=== PATIENT | female | born 1960 | race Caucasian/White ===

== ENCOUNTER 2021-12-14 18:24 | Emergency (ER) | payer OTHER ==
[2021-12-14 21:47] LABS: INFLUENZA A NAA NEGATIVE (NEGATIVE)
[2021-12-14 21:48] LABS: CORONAVIRUS 2019 SARS-COV-2 POSITIVE (NEGATIVE)
== END 2021-12-14 22:40 | disposition home or self-care (01) ==
LOC: FER 18:24
PROVIDERS: Emergency Medicine Emergency Medical Services
DX: U07.1 COVID-19 (principal); E11.9 Type 2 diabetes mellitus without complications; I10 Essential (primary) hypertension; F17.200 Nicotine dependence, unspecified, uncomplicated; Z79.899 Other long term (current) drug therapy
CPT/HCPCS: 99283; U0002

== ENCOUNTER → 2022-03-11 | Day surgery (SDC) | payer OTHER ==
[~2022-03-11] VITALS: Ht 152.4 cm; Wt 57.1 kg
[~2022-03-11] MED LIST: AVAPRO300 MG PO; CLONAZEPAM0.5 MG PO; DICLOFENAC POTA25 MG PO; FLONASE ALLER15.8 ML; PREVACID30 M1 PO; TRAZODONE HCL150 MG PO; VENTOLIN HFA IN18 GM INH; WELLBUTRIN XL300 MG PO; ZESTRIL5 MG PO; ZYRTEC10 M3 PO
== END | disposition home or self-care (01) ==
LOC: FAS 07:25
DX: D50.0 Iron deficiency anemia secondary to blood loss (chronic) (principal); K64.8 Other hemorrhoids; K31.9 Disease of stomach and duodenum, unspecified; K29.50 Unspecified chronic gastritis without bleeding; K21.00 Gastro-esophageal reflux disease with esophagitis, without bleeding; R63.4 Abnormal weight loss; K59.00 Constipation, unspecified; I10 Essential (primary) hypertension; Z90.49 Acquired absence of other specified parts of digestive tract; Z90.710 Acquired absence of both cervix and uterus; Z87.891 Personal history of nicotine dependence
CPT/HCPCS: J1100; J2250; J2704; J7120

== ENCOUNTER → 2022-07-01 | Day surgery (SDC) | payer OTHER ==
[~2022-07-01] VITALS: Ht 152.4 cm; Wt 54.9 kg
[~2022-07-01] MED LIST changes: +COLESTID1 GM PO
[2022-07-01 08:30] LABS: HCT 34.4 % (37.0-47.0); HGB 10.5 g/dl (12.5-16.0); MCH 19.3 pg (25.0-31.0); MCHC 30.5 g/dL (32.0-36.0); MCV 63.1 fL (78.0-100.0); PLT 143 K/uL (150-400); RBC 5.45 M/uL (4.20-5.40); WBC 4.8 K/uL (4.0-10.5)
[2022-07-01 08:51] LABS: ALBUMIN 4.2 g/dL (3.4-5.0); BILIRUBIN - TOTAL 0.8 mg/dL (0.2-1.0); BUN/CREAT RATIO (CALC) 29.5 RATIO; CREATININE 0.88 mg/dL (0.51-0.95); GLOBULIN (CALCULATION) 3.2 g/dL; POTASSIUM 3.7 mmol/L (3.5-5.1); TOTAL PROTEIN 7.4 g/dL (6.4-8.2)
== END | disposition home or self-care (01) ==
LOC: FAS 07:52
PROVIDERS: Surgery
DX: D50.0 Iron deficiency anemia secondary to blood loss (chronic) (principal); K64.9 Unspecified hemorrhoids; R12 Heartburn; I10 Essential (primary) hypertension; Z79.899 Other long term (current) drug therapy; Z87.891 Personal history of nicotine dependence
CPT/HCPCS: 36415; 80053; J1642; J2250; J2704; J7120